=== PATIENT | male | born 1955 | race African-American/Black ===

== ENCOUNTER 2017-04-06 11:06 | Emergency (ER) | payer MEDICARE, OTHER ==
[~2017-04-06 11:06] MED LIST: VENTOLIN HFA INH; Z PACK; [UNRECOGNIZED DRUG - OTHER]
== END 2017-04-06 12:00 | disposition home or self-care (01) ==
LOC: ER 11:06
DX: S46.912A Strain of unspecified muscle, fascia and tendon at shoulder and upper arm level, left arm, initial encounter (principal); F17.200 Nicotine dependence, unspecified, uncomplicated; Z79.899 Other long term (current) drug therapy; X58.XXXA Exposure to other specified factors, initial encounter
CPT/HCPCS: 73030-LT; 99283